=== PATIENT | male | born 1970 | race Caucasian/White ===

== ENCOUNTER 2017-12-10 15:34 | Emergency (ER) | payer MEDICAID ==
[2017-12-10] MEDS ORDERED: Ondansetron 4 MG Tab.DIS ONE (16:17)
[2017-12-10] MEDS: ALPRAZolam 0.25 MG Tab ONE ×2 (16:21→16:40)
[2017-12-10] MEDS ORDERED: ALPRAZolam 0.25 MG Tab PO ONE (16:25)
[2017-12-10] MEDS ORDERED: cloNIDine 0.1 MG Tab PO ONE (16:33)
[2017-12-10] MEDS ORDERED: cloNIDine 0.1 MG Tab ONE (16:37)
--- NOTE | 2017-12-10 16:39 | EDM.PDOCBH ---
ED HPI GENERAL MEDICAL PROBLEM - General Chief Complaint: Behavioral/Psych Stated Complaint: Behavioral Health Issues Time Seen by Provider: 12/10/17 16:09 Source of Information: Reports: Patient, RN History Limitations: Reports: No Limitations - History of Present Illness INITIAL COMMENTS - FREE TEXT/NARRATIVE: 47 yr male presents with bipolar and anxiety. He had been seen in the clinic with telemedicine for behavioral health consult and Dr Brand recommend pt to be transported via ambulance to [facility]. Pt score on PHQ 9 was 27. Pt states he would rather not be around, but has no suicide plan at this time and knows he needs to stay around for his family. He does have a son and daughter and a grandchild on the way. He has been nauseated and unable to take his medications, but did take them today. He is in the ER now and waiting transport to [facility]. - Related Data Allergies Allergy/AdvReac Type Severity Reaction Status Date / Time duloxetine Allergy Rash Verified 12/10/17 15:45 lisinopril Allergy Cough Verified 12/10/17 15:42 Home Meds: Home Meds ALPRAZolam [Xanax] 0.5 mg PO TID 12/10/17 [History] Gabapentin [Neurontin] 600 mg PO BID 12/10/17 [History] [place] Carbonate [Lithobid] 300 mg PO BID 12/10/17 [History] Metoprolol Succinate 50 mg PO DAILY 12/10/17 [History] Omeprazole 40 mg PO DAILY 12/10/17 [History] QUEtiapine [SEROquel] 100 mg PO DAILY 12/10/17 [History] Tamsulosin [Tamsulosin 24 Hr] 0.4 mg PO DAILY 12/10/17 [History] Ziprasidone HCl [Geodon] 60 mg PO BID 12/10/17 [History] atorvaSTATin [Lipitor] 40 mg PO BEDTIME 12/10/17 [History] lamoTRIgine [Lamotrigine] 100 mg PO DAILY 12/10/17 [History] metFORMIN [Glucophage] 1,000 mg PO BIDMEALS 12/10/17 [History] traMADol [Ultram] 100 mg PO BID 12/10/17 [History] ED ROS GENERAL - Review of Systems Review Of Systems: See Below Constitutional: Reports: No Symptoms, Other (sweating) HEENT: Reports: No Symptoms Respiratory: Reports: No Symptoms Cardiovascular: Reports: No Symptoms GI/Abdominal: Reports: Nausea Musculoskeletal: Reports: No Symptoms Skin: Reports: No Symptoms Neurological: Reports: No Symptoms Psychiatric: Reports: Anxiety, Other (bipolar disorder) ED EXAM, BEHAVIORAL HEALTH - Physical Exam Exam: See Below Exam Limited By: No Limitations General Appearance: Alert, Anxious Ears: Normal External Exam, Normal Canal, Hearing Grossly Normal Nose: Normal Inspection Throat/Mouth: Normal Inspection, Normal Lips, Normal Voice, No Airway Compromise Head: Atraumatic, Normocephalic Neck: Normal Inspection, Supple, Non-Tender Respiratory/Chest: No Respiratory Distress, Lungs Clear, Normal Breath Sounds GI/Abdominal: Soft, Non-Tender (Male) Exam: Deferred Rectal (Males) Exam: Deferred Back Exam: Normal Inspection, Full Range of Motion Extremities: Normal Inspection, Normal Range of Motion, Non-Tender Neurological: Alert, Normal Cognition, Oriented x 3 Psychiatric: Alert, Normal Cognition, Restless, Other (thoughts of not wanting to be here, states no suicide plan.) Skin Exam: Warm, Normal color COURSE, BEHAVIORAL HEALTH COMP - Course Vital Signs: Last Vital Signs Temp 97 F 12/10/17 16:54 Pulse 60 12/10/17 16:54 Resp 20 12/10/17 16:54 BP 129/96 H 12/10/17 16:54 Pulse Ox 94 L 12/10/17 16:54 Orders, Labs, Meds: Medications Discontinued Medications Generic Name Dose Route Start Last Admin Trade Name Tomq PRN Reason Stop Dose Admin Alprazolam Confirm 12/10/17 16:25 12/10/17 16:40 Xanax Administered 12/10/17 16:26 Not Given Dose 0.5 mg .ROUTE .STK-MED ONE Alprazolam 0.5 mg 12/10/17 16:25 12/10/17 16:21 Xanax PO 12/10/17 16:26 0.5 mg ONETIME ONE Administration Clonidine HCl 0.1 mg 12/10/17 16:33 12/10/17 16:32 Catapres PO 12/10/17 16:34 0.1 mg ONETIME ONE Administration Clonidine HCl Confirm 12/10/17 16:37 12/10/17 16:39 Catapres Administered 06/21/18 16:38 Not Given Dose 0.1 mg .ROUTE .STK-MED ONE Ondansetron HCl Confirm 12/10/17 16:17 12/10/17 16:12 Zofran Odt Administered 12/10/17 16:18 4 mg Dose Administration 4 mg .ROUTE .STK-MED ONE Re-Assessment/Re-Exam: Pt complaint of nausea for 1 week. will give Zofran for nausea. Pt is extremely anxious and fidgety. States no Alprazolam since 9 am today and can take up to tid as needed for anxiety. States this is just another pill. He doesn't care if takes any medications or not. did discusss wishes for CPR/DNR and pt states he does wish to have BLS/ACLS, but doesn't want to be kept alive on any machines. BP has been elevated and he hasn't been able to take his medication this week. He reports taking Metoprolol this am. will give Clonidine 0.1 mg PO X 1. Pt responded well to medications and states no dizziness and light headedness. Pt to be transported to [facility] by ambulance for his safety. He is a suicide risk and needs to have close monitoring for the transport to prevent self harm. Pt states understanding and signed forms for transport. This is the closest facility for this care for the patient. Departure - Departure Time of Disposition: 17:00 Disposition: DC/Tfer to Psych Hosp/Unit [facility] Condition: Good Clinical Impression: Anxiety, Bipolar 1 disorder - Discharge Information Referrals: Isidro Brand MD [Primary Care Provider] - Forms: ED Department Discharge
== END 2017-12-10 17:10 ==
LOC: EEVIPCON 15:34 → LB.ED 15:34
DX: F41.9 Anxiety disorder, unspecified (principal); F31.9 Bipolar disorder, unspecified; Z91.09 Other allergy status, other than to drugs and biological substances; Z79.899 Other long term (current) drug therapy; R11.0 Nausea; I10 Essential (primary) hypertension
CPT/HCPCS: 99284; A0425; A0429; A9270-GY